=== PATIENT | female | born 1955 | race Caucasian/White ===

== ENCOUNTER 2017-03-31 08:12 | Emergency (ER) | payer OTHER ==
[~2017-03-31] VITALS: Ht 152.4 cm; Wt 52.2 kg
[~2017-03-31 08:12] MED LIST: AMBIEN10 M1 PO; FLOMAX(MONOGRA0.4 MG PO; MACRODANTIN 50M50 MG PO; MINIVELLE1 EAC4 TOP; NORCO 325 MG-51 TAB PO; VICODIN ES 3001 TAB PO; VICODIN ES 7.51 EACH PO; VICODIN10-300 PO; ZOFRAN 4 MG TABL4 MG PO; ZOFRAN ODT4 MG PO; ZOFRAN4 M2 PO; [UNRECOGNIZED DRUG - OTHER] PO
--- NOTE | 2017-03-31 08:37 | ED GI/GU/ABDOMINAL COMPLAINT ---
History of Present Illness General Chief Complaint: Abdominal Pain/Flank Pain Stated Complaint: R FLANK PAIN Source: patient Exam Limitations: no limitations Vital Signs & Intake/Output Vital Signs & Intake/Output Vital Signs Date Time Temp Pulse Resp B/P B/P Pulse O2 O2 Flow FiO2 Mean Ox Delivery Rate 03/31 0817 98.1 84 16 170/79 97 Room Air Allergies Coded Allergies: NO KNOWN ALLERGIES (12/11/14) Reconcile Medications Estradiol (Minivelle) 0.0375 MG/24 HOUR PATCH.TDSW 1 PAT TOP WeSa HRT ( Reported) Nitrofurantoin Macrocrystal (Nitrofurantoin) 50 MG CAPSULE 1 CAP PO DAILY ANTIBIOTIC, INFECTION (Reported) Zolpidem Tartrate (Ambien) 10 MG TABLET 1 TAB PO QPM SLEEP (Reported) Triage Note: PT STATES SHE THINKS SHE HAS A KIDNEY STONE RIGHT FLANK PAIN. PT STATES THIS STARTED LAST EVENING. Triage Nurses Notes Reviewed? yes ? n Is pt currently ? No Onset: Gradual Duration: hour(s):, constant, continues in ED, waxing and waning Timing: recent history Quality/Severity: severe Location: right flank Radiation: no radiation HPI: Patient presents for evaluation of atypical kidney stone attack. Patient has had multiple episodes in the past along with lithotripsy. She tried a Vicodin about 2 hours ago with no improvement. She denies any associated fever, cold symptoms or hematuria. She has felt nauseous but hasn't vomited. Past History Travel History Traveled to [place] past 21 day No Medical History Any Pertinent Medical History? see below for history Neurological: NONE EENT: NONE Cardiovascular: NONE Respiratory: NONE Gastrointestinal: NONE Hepatic: NONE Renal: nephrolithiasis, KIDNEY STONES Musculoskeletal: NONE Psychiatric: NONE Endocrine: NONE Blood Disorders: NONE Cancer(s): NONE INTEGRITY ASSESSOR/Reproductive: NONE Other Medical Hx: recurrent urinary tract infections Surgical History Surgical History: lithotripsy, cystoscopy Psychosocial History What is your primary language [place] Citizen Tobacco Use: Current Daily Use Daily Tobacco Use Amount/Type: => 5 Cigarettes daily ETOH Use: alcoholic Illicit Drug Use: denies illicit drug use Family History Hx Contributory? No Review of Systems Review of Systems Constitutional: Reports: no symptoms. EENTM: Reports: no symptoms. Respiratory: Reports: no symptoms. Cardiovascular: Reports: no symptoms. GI: Reports: no symptoms. Genitourinary: Reports: see HPI. Musculoskeletal: Reports: no symptoms. Skin: Reports: no symptoms. Neurological/Psychological: Reports: no symptoms. Hematologic/Endocrine: Reports: no symptoms. Immunologic/Allergic: Reports: no symptoms. All Other Systems: Reviewed and Negative Physical Exam Physical Exam Gastrointestinal: see below Comments: Gen.: Well-nourished, well-developed, no acute respiratory distress. Acutely distressed secondary to right flank pain. Head: Normocephalic, atraumatic. Eyes: Normal inspection bilaterally Ears: Normal inspection bilaterally Nose: Normal inspection Throat/mouth : Moist mucosa Neck: Supple, full range of motion, no goiter Heart: Regular rate and rhythm, no murmurs rubs or gallops Lungs: Clear to auscultation bilaterally with normal air entry Chest: Nontender Back: Normal range of motion, right CVAT Abdomen: Soft, nontender, nondistended, normal bowel sounds Extremities: Normal range of motion grossly, equal radial pulses, no cyanosis clubbing or edema Neurologic: Cranial nerves grossly intact, speech is clear Skin: warm and dry Psychiatric: Calm, cooperative, no apparent delusions or hallucinations Core Measures ACS in differential dx? No Severe Sepsis Present: No Septic Shock Present: No Progress Differential Diagnosis: kidney stone Plan of Care: Orders Procedure Date/time Status URINALYSIS 03/31 831 Complete COMPREHENSIVE METABOLIC PANEL 03/31 831 Complete CBC WITHOUT DIFFERENTIAL 03/31 831 Complete Laboratory Tests 03/31/17 0832: Anion Gap 12, Estimated GFR > 60, BUN/Creatinine Ratio 23.3, Glucose 111 H, Calcium 9.0, Total Bilirubin 0.5, AST 24, ALT 36, Alkaline Phosphatase 86, Total Protein 6.8, Albumin 4.5, Globulin 2.3, Albumin/Globulin Ratio 2.0, CBC w Diff NO MAN DIFF REQ, RBC 4.72, MCV 96.7, MCH 32.0 H, RDW 14.3, MPV 8.6, Gran % 66.4 , Lymphocytes % 25.3, Monocytes % 6.5, Eosinophils % 1.4, Basophils % 0.4, Absolute Granulocytes 6.5, Absolute Lymphocytes 2.5, Absolute Monocytes 0.6, Absolute Eosinophils 0.1, Absolute Basophils 0, PUBS MCHC 33.1, Urine Color YEL, Urine Clarity HAZY H, Urine pH 6.0, Ur Specific [place] 1.020, Urine Protein TRACE H, Urine Ketones NEG, Urine Nitrite NEG, Urine Bilirubin NEG, Urine Urobilinogen 0.2, Ur Leukocyte Esterase TRACE H, Ur Microscopic SEDIMENT EXAMINED, Urine RBC >75 H, Urine WBC 1-3 H, Ur Epithelial Cells MOD H, Urine Mucus FEW, Urine Hemoglobin LARGE H, Urine Glucose NEG Initial ED EKG: none Comments: Initially I considered treating patient based on symptoms alone, however, the patient states she has had very severe stones and "blockages" in the past so she requested a CAT scan and the otherwise typical evaluation in the emergency department. 03/31/2017 9:41:34 AM Yuni updated, additional pain medication ordered, urologist paged. 03/31/2017 10:35:14 AM D/W DR FRY, who will see patient in the office for subsequent stenting. He feels she is stable for discharge so long as her pain is controlled. The patient is agreeable. Departure Departure Disposition: HOME OR SELF CARE Condition: Stable Clinical Impression Primary Impression: Renal colic on right side Referrals: MELISSA LIM,JOSSY (PCP/Family) SUMMER FRY MD Additional Instructions: PLEASE FOLLOW UP WITH DR FRY, [address], [address], [address], [facility] TODAY FOR APPT AND POSSIBLE STENT PLACEMENT TOMORROW. Departure Forms: Customer Survey General Discharge Information Prescriptions: Current Visit Scripts Hydrocodone/Acetaminophen ([place] 5-325 Tablet) 1-2 TAB PO Q6P PRN PAIN #20 TAB Tamsulosin HCl (Flomax) 1 CAP PO DAILY #7 CAP Ketorolac Tromethamine 1 TAB PO Q6P PRN KIDNEY STONE #16 TAB PATIENT TREATED WITH iv tORADOL IN THE EMERGENCY DEPARTMENT Critical Care Note Critical Care Note Critical Care Time: 30-74 min
[2017-03-31] MEDS ORDERED: NITROFURANTOIN50 M1 PO (08:47)
[2017-03-31 08:50] LABS: ABSOLUTE BASOPHIL COUNT 0 /CUMM (0.0-0.2); ABSOLUTE EOSINOPHIL COUNT 0.1 /CUMM (0.0-0.7); ABSOLUTE GRANULOCYTE CT 6.5 /CUMM (1.4-6.5); ABSOLUTE LYMPH COUNT 2.5 /CUMM (1.2-3.4); ABSOLUTE MONOCYTE COUNT 0.6 /CUMM (0.10-0.60); BASOPHIL % 0.4 % (0.0-2.0); EOSINOPHIL % 1.4 % (0-5); GRANULOCYTE % 66.4 % (42.2-75.2); HEMATOCRIT 45.6 % (37-47); MEAN CORPUSCULAR HGB CONC 33.1 G/DL (33.0-37.0); MEAN CORPUSCULAR VOLUME 96.7 FL (81.0-99.0); MEAN PLATELET VOLUME 8.6 FL (7.4-10.4); PLATELET COUNT 204 /CUMM (130-400); RBC DISTRIBUTION WIDTH 14.3 % (11.5-14.5); RED BLOOD CELL CT 4.72 /CUMM (4.20-5.40); WHITE BLOOD CELL COUNT 9.8 /CUMM (4.8-10.8)
--- NOTE | 2017-03-31 09:27 | CT SCAN REPORT ---
EXAMINATION: CT ABDOMEN AND PELVIS WITHOUT CONTRAST CLINICAL INFORMATION: Right-sided flank pain. COMPARISON: 11/21/2016. TECHNIQUE: Multidetector volumetric imaging was performed from the superior aspect of the liver through the pubic symphysis. Sagittal and coronal reformatted images were obtained on the technologist's workstation. DLP: 221 mGy-cm FINDINGS: LUNG BASES: Small Bochdalek hernia in the right lung base containing only mesenteric fat unchanged. The lungs appear hyperexpanded suggesting COPD changes. LIVER AND SPLEEN: Multiple hepatic cysts are again noted, the largest in the left lobe measuring 12 cm transverse dimension largely unchanged. PANCREAS GALLBLADDER AND BILIARY TREE: Pancreas and biliary tree displaced medially due to the large hepatic cyst in the left lobe as noted above. Otherwise unremarkable. KIDNEYS, URETERS, AND ADRENALS: There is moderate right-sided hydroureteronephrosis with a grouping of approximately 3 small calculi in the mid right ureter at the level of the inferior sacroiliac joint on the right side the largest of these calculi measures 6 x 5 mm in maximal dimension. Otherwise there are multiple small bilateral renal calculi largest mid pole right kidney measuring 4 to 5 mm maximal dimension. Overall stone burden appears largely unchanged. There is a 1.5 cm maximal dimension cyst in the upper pole of the right kidney medially. Unchanged. URINARY BLADDER: Only partially distended without evidence of bladder calculi. GI TRACT: Stomach is displaced medially due to the large hepatic cyst. There are a few scattered descending and sigmoid colon diverticula without evidence of acute diverticulitis. Appendix is not definitively seen however there is no evidence of acute appendicitis. PERITONEAL CAVITY: Unremarkable. RETROPERITONEUM: Mild atherosclerotic aortic calcification without aneurysmal dilatation. PELVIC ORGANS: Lower uterine segment is somewhat prominent for a patient of this age. Pelvic ultrasound imaging should be considered to further evaluate. No definite adnexal lesions are seen. OSSEOUS STRUCTURES: No focal destructive or sclerotic osseous lesions are seen. ANTERIOR ABDOMINAL WALL AND SOFT TISSUES: Intact without evidence of a significant hernia. IMPRESSION: 1. There are multiple bilateral renal calculi with a grouping of small calcifications in the mid right ureter with moderate right-sided hydroureteronephrosis. 2. Multiple hepatic and a single right renal cyst are identified, largest hepatic cyst is over 12 cm in size with mass effect as noted above. 3. Sigmoid colon diverticulosis without evidence of diverticulitis.
[2017-03-31] MEDS ORDERED: KETOROLAC TROME10 M1 PO (10:37)
[2017-03-31] MEDS ORDERED: FLOMAX0.4 M1 PO (10:37)
[2017-03-31] MEDS ORDERED: NORCO 5-325 TA1 EACH PO (10:37)
[2017-03-31 10:42] VITALS: BP 146/85
== END 2017-03-31 10:43 ==
LOC: ERH 08:12
PROVIDERS: Emergency Medicine
DX: N23 Unspecified renal colic (principal)
CPT/HCPCS: 74176; 81001; 96374; 96375; J1885; J2405

== ENCOUNTER → 2017-04-01 | Day surgery (SDC) | payer OTHER ==
[~2017-04-01] VITALS: Ht 152.4 cm; Wt 52.2 kg
[~2017-04-01] MED LIST changes: +FLOMAX0.4 M1 PO; +KETOROLAC TROME10 M1 PO; +NITROFURANTOIN50 M1 PO; +NORCO 5-325 TA1 EACH PO
--- NOTE | 2017-04-01 16:34 | Operative Report ---
Operative/Inv Procedure Report Surgery Date: 04/01/17 Name of Procedure: CYSTSOCOPY: RIGHT RETROGRADE PYELOGRAM , REGHT STENT INSERTION. Pre-Operative Diagnosis: RIGHT URETER STONE WIHT SEVERE HYDRONEPHROSIS Post-Operative Diagnosis: BILAT. RENAL STOE Estimated Blood Loss: less than 50ml Surgeon/Pipe Fitter Apprentice: SUMMER FRY MD Anesthesia: laryngeal mask airway Complications: none Condition: IMPROVED Operative/Procedure Note Note: Patient was taken to the operating room placed on the OR table in supine position. Timeout was performed, with the patient awake, in order to confirm the patient's correct identity, procedure, laterality, anesthesia, and other pertinent perioperative information.. After adequate anesthesia and antibiotics , the patient was then placed in lithotomy stirrups, draped and prepped in the usual surgical fashion. A 22 Angolan cystoscope sheath with 30 angle lens was inserted without difficulty. Upon entering the bladder, the bladder was noted to be free of tumor, free of stone. Both orifices were in their orthotopic position, with clear reflux from the left ureter, but no reflux in the right. The right ureteral orifice was intubated with an 8 Angolan cone-tipped catheter. Retrograde pyelogram was performed revealing a amorphos\us filling defect in the renal pelvis. On fluoroscopy, there was proximal hydronephrosis. The cone- tipped catheter was removed, and then the right orifice was intubated with a 0.035 safety gluidewire. The Glidewire was advanced into the right ureter, and renal pelvis, with fluoroscopic visualization. The flexible ureteroscope was railroaded over the Glidewire. With fluoroscopic confirmation of the flexible ureteroscope in the right renal pelvis, the Glidewire was removed. Large amount of pus consistent with bezoar, was noted in the renal pelvis. The entire bezoar was aspirated out revealing no tumor, no stone. A 0.035 Glidewire was then reinserted into the renal pelvis via the ureteroscope. The ureteroscope was removed leaving the Glidewire in place. The Glidewire was then backloaded onto a 22 Angolan cystoscope sheath with a 30 angle lens. The cystoscope was then reinserted into the bladder where the right orifice was visualized with the Glidewire and place. Over this Glidewire a 6x20 Bard onlay stent was inserted with the proximal coil visualized in the renal pelvis with fluoroscopy and the distal coil in the bladder cystoscopically the Glidewire was removed. Fluoroscopy was then performed in order to reveal the stent to be in proper place. The bladder was then drained via the cystoscope which was then removed. The patient tolerated the procedure well, all sponge needle and a cement count were correct at the end of the case, and the patient was awakened and taken to the recovery room in satisfactory condition. Discharge Disposition: PACU CC: SUMMER FRY MD
--- NOTE | 2017-04-02 14:11 | RADIOLOGY REPORT ---
EXAMINATION: XR KIDNEYS, URETER, BLADDER CLINICAL INDICATION: Right cystoureterography and stent placement. COMPARISON: CT of abdomen pelvis, 03/31/2017 TECHNIQUE: Fluoroscopic imaging of the right abdomen was utilized and 2 spot fluoroscopy images are submitted into the electronic picture archive. Fluoroscopy time: 17.5 seconds. Dose: 157.53 mrad. FINDINGS: Please refer to the operative report from Dr. Cohen. There are right renal calculi and a right ureteral stent was deployed; the stent is a not completely included in the [id number] on the saved fluoroscopic images. IMPRESSION: Urolithiasis. Right ureteral stent was placed. Please refer to the operative report.
== END ==
LOC: STS 07:00
DX: N13.39 Other hydronephrosis (principal); N28.89 Other specified disorders of kidney and ureter; Z87.442 Personal history of urinary calculi; F17.200 Nicotine dependence, unspecified, uncomplicated
CPT/HCPCS: 74000; 93005; 93010; C2617; J0131; J2250

== ENCOUNTER → 2017-04-08 | Day surgery (SDC) | payer OTHER ==
[~2017-04-08] VITALS: Ht 152.4 cm; Wt 52.2 kg
--- NOTE | 2017-04-08 14:29 | Operative Report ---
Operative/Inv Procedure Report Surgery Date: 04/08/17 Name of Procedure: right ureter ESWL: cystscopy with right stent removal. Pre-Operative Diagnosis: bilat. renal stones: right ureter stone with stent. Post-Operative Diagnosis: same Estimated Blood Loss: scant Surgeon/Director Trade: SUMMER FRY MD Anesthesia: moderate sedation Specimens: none Complications: none Operative/Procedure Note Note: The patient was taken to the operating room and placed on the ESWL table in supine position. Time out was performed, with the patient awake, to confirm identity, procedure, laterality, and other pertinent edilma-operative information. After adequate anesthesia, the patient was positioned so that the right flank was placed over the ESWL table cut-out, and overlying the dome of the shockwave generator. C-arm fluroscopy, as well as renal US was used to locate the stone, and evaluate the right kidney. The stone was faintly visible on fluroloscopy at the right mid-ureter. Renal US confirmed mild hydronephrosis with no additional stone seen in the right kidney. The right ureter stone was approximate 9 mm in size and faintly visible with fluoroscopy. Using the C-Arm fluoroscopy in an A- P, and Oblique view, the position of the ureter stone was optimized at the center of the crosshairs. At this point, E.S.W.L. was initiated at low power levels x 200 shocks. After noting the patient's tolerance to the shockwaves, the shockwave power level was quickly maximized. At the end of the procedure, the composition of the stone had changed significantly indicating the pulverization of the ureter stone. A total of 3000 shockwaves were delivered to the stone in order to achieve adequate lithotrypsy. Once the ESWL concluded, the pt. was repositioned in frog-legged position, draped and prepped in the usual surgical fashion. A 22 D[place] cystoscope sheath with a 30 angle lens was then inserted into the bladder. The bladder was thoroughly and systematically surveyed revealing no tumor no stone. Both ureteral orifices were in their orthotopic position. The right orifice was intubated with a stent, which was grasped with a grasping forcep. The entire stent along with the cystoscope was then removed without difficulty. The patient tolerated the procedures well, was awakened, and taken to recovery in satisfactory condition via stretcher. The pt will be dischared to home with pain meds, diet orders, and intructions to catch fragments with straining the urine. The patient is to have follow-up renal ultrasound and KUB within 1-2 weeks and f/u in the office after discharge. Findings: 9mm right mid-ureter stone shattered at 3000-gaited Discharge Disposition: Same Day Admissions CC: LISANDRA LIM,SUMMER
== END ==
LOC: STS 07:00
DX: N13.2 Hydronephrosis with renal and ureteral calculous obstruction (principal)
CPT/HCPCS: J0690

== ENCOUNTER 2017-04-09 11:26 | Emergency (ER) | payer OTHER ==
[~2017-04-09] VITALS: Ht 152.4 cm; Wt 49.9 kg
--- NOTE | 2017-04-09 11:57 | ED GI/GU/ABDOMINAL COMPLAINT ---
History of Present Illness General Chief Complaint: Abdominal Pain/Flank Pain Stated Complaint: R FLANK PAIN Source: patient, old records Exam Limitations: no limitations Vital Signs & Intake/Output Vital Signs & Intake/Output Vital Signs Date Time Temp Pulse Resp B/P B/P Pulse O2 O2 Flow FiO2 Mean Ox Delivery Rate 04/09 1330 98.2 76 18 168/80 94 Room Air 04/09 1238 90 182/80 04/09 1134 98.9 82 20 182/90 95 Room Air Allergies Coded Allergies: No Known Allergies (04/01/17) Reconcile Medications Estradiol (Minivelle) 0.0375 MG/24 HOUR PATCH.TDSW 1 PAT TOP WeSa HRT ( Reported) Hydrocodone/Acetaminophen (Garvin 5-325 Tablet) 5 MG-325 MG TABLET 1-2 TAB PO Q6P PRN PAIN Nitrofurantoin Macrocrystal (Nitrofurantoin) 50 MG CAPSULE 1 CAP PO DAILY ANTIBIOTIC, INFECTION (Reported) Zolpidem Tartrate (Ambien) 10 MG TABLET 1 TAB PO QPM SLEEP (Reported) Triage Note: C/O R FLANK PAIN 2 HOURS, S/P LITHOTRIPSY (DR. COHEN). ALSO C/O NAUSEA. Triage Nurses Notes Reviewed? yes ? n Is pt currently ? No Onset: Abrupt Duration: hour(s): (2) Timing: recent history Quality/Severity: sharpness, severe Severity Numbers: 9 Location: right flank Radiation: back Activities at Onset: none Prior Abdominal Problems: similar symptoms Past Sexual History: Unobtainable at this time No Modifying Factors: none HPI: Patient is a 61-year-old female with extensive history of kidney stones, sees Dr. Cohen, presenting to the emergency department with chief complaint of sudden onset right flank pain that began approximately 2 hours prior to arrival. Patient denying any hematuria but reports that she thinks she may have passed one stone earlier today. She was recently seen and evaluated in the emergency department for similar symptoms and diagnosed with a large kidney stone. She had lithotripsy done yesterday and her ureteral stent was removed yesterday. She was fine last night. Ate dinner without difficulty. Patient denies any fevers or chills. Positive decreased by mouth intake today. Nausea but no vomiting. Denies chest pain palpitations or shortness of breath. (HOOD LICEA) Past History Travel History Traveled to [place] past 21 day No Medical History Any Pertinent Medical History? see below for history Neurological: NONE EENT: NONE Cardiovascular: NONE Respiratory: NONE Gastrointestinal: NONE Hepatic: NONE Renal: nephrolithiasis, KIDNEY STONES Musculoskeletal: NONE Psychiatric: NONE Endocrine: NONE Blood Disorders: NONE Cancer(s): NONE DIRECTOR FIXED INCOME/Reproductive: NONE Other Medical Hx: recurrent urinary tract infections Surgical History Surgical History: lithotripsy, cystoscopy Psychosocial History What is your primary language Burkinan Tobacco Use: Current Daily Use Daily Tobacco Use Amount/Type: => 5 Cigarettes daily ETOH Use: denies use Family History Hx Contributory? No (HOOD LICEA) Review of Systems Review of Systems Constitutional: Reports: no symptoms. Comments Review of systems: See HPI, All other systems negative. Constitutional, no chills fever or weight loss HEENT: No visual changes no sore throat no congestion Cardiovascular: No chest pain ,palpitation Skin, no jaundice no rashes Respiratory: No dyspnea cough sputum or hemoptysis GI: No nausea no vomiting : No dysuria No hematuria Muscle skeletal: no back pain, no neck pain, Neurologic: No numbness no confusion, no headaches Psych: No stress anxiety or depression,. Heme/endocrine: No bruising no bleeding no polyuria or polydipsia Immunology: No splenectomy or history of AIDS (HOOD LICEA) Physical Exam Physical Exam General Appearance: well developed/nourished, alert, awake, mild distress Gastrointestinal: normal bowel sounds, soft, non-tender Comments: Well-developed well-nourished person in mild distress HEENT:. Pupils equally round and reactive to light and accommodation. Nose is atraumatic. Moist oromucosa. Neck: Normal inspection Back: Right CVA tenderness on exam. Cardiovascular: Regular rate and rhythms no murmurs rubs or gallops, normal JVP Respiratory: Chest nontender. No respiratory distress.breath sounds clear to auscultation bilaterally Abdomen: Soft, nontender nondistended, no appreciable organomegaly. Normal bowel sounds. No ascites, no rebound or guarding. Extremity: No edema Neuro: Alert oriented x3 Skin: No appreciable rash on exposed skin, skin is warm and dry. Psych: Mood and affect is normal, memory and judgment is normal. Core Measures ACS in differential dx? No Severe Sepsis Present: No Septic Shock Present: No ([place]) Progress Differential Diagnosis: UTI/pyelo, kidney stone, ureterolithiasis, nephrolithiasis Plan of Care: Orders Procedure Date/time Status URINALYSIS 04/09 1157 Complete COMPREHENSIVE METABOLIC PANEL 04/09 1157 Complete CBC WITHOUT DIFFERENTIAL 04/09 1157 Complete Laboratory Tests 04/09/17 1233: Anion Gap 10, Estimated GFR > 60, BUN/Creatinine Ratio 21.4, Glucose 135 H, Calcium 9.3, Total Bilirubin 0.8, AST 24, ALT 41, Alkaline Phosphatase 67, Total Protein 6.4, Albumin 4.2, Globulin 2.2, Albumin/Globulin Ratio 1.9, CBC w Diff NO MAN DIFF REQ, RBC 4.48, MCV 95.7, MCH 32.1 H, RDW 13.9, MPV 8.5, Gran % 86.5 H, Lymphocytes % 7.5 L, Monocytes % 5.6, Eosinophils % 0.2, Basophils % 0.2, Absolute Granulocytes 9.7 H, Absolute Lymphocytes 0.8 L, Absolute Monocytes 0.6, Absolute Eosinophils 0, Absolute Basophils 0, PUBS MCHC 33.6 04/09/17 1200: Urinalysis LIGHT H, Urine Color DMITRIY, Urine Clarity HAZY H, Urine pH 5.0, Ur Specific [place] >= 1.030, Urine Protein 30 H, Urine Ketones TRACE H, Urine Nitrite NEG, Urine Bilirubin NEG, Urine Urobilinogen 0.2, Ur Leukocyte Esterase NEG, Ur Microscopic SEDIMENT EXAMINED, Urine RBC >75 H, Urine WBC 1-3 H, Ur Epithelial Cells MANY H, Urine Bacteria FEW H, Hyaline Casts RARE H, Urine Mucus MOD H, Urine Hemoglobin LARGE H, Urine Glucose NEG Diagnostic Imaging: Viewed by Me: Radiology Read, Ultrasound. Discussed w/RAD: Radiology Read, Ultrasound. Radiology Impression: PATIENT: ASAEL QUIROGA PRESENT AGE: 61 PATIENT ACCOUNT NO: [id number] : 54 LOCATION: [facility] ORDERING PHYSICIAN: HOOD PALACIOS SERVICE DATE: 04/09/17-1157 EXAM TYPE: US - US-RENAL/KIDNEY EXAMINATION: US RETROPERITONEAL COMPLETE (RENAL) CLINICAL INFORMATION: Right flank pain. Recent lithotripsy.. COMPARISON: Radiograph from today. CT from 03/31/2017. TECHNIQUE: Real-time imaging of the kidneys and bladder. FINDINGS: RIGHT KIDNEY: 11.2 x 5.9 x 4.5 cm (SAG x AP x TRV ). The kidney is normal in size, contour, and echogenicity. Renal cortical thickness is normal. There is mild hydronephrosis. Multiple calculi are present. Of note, there is a 0.7 cm midpole calculus. There are lower pole 0.7 cm and 0.6 cm calculi. Additional 0.8 cm lower pole calculus. Mild perinephric fluid noted. No parenchymal lesions. LEFT KIDNEY: 10.6 x 5.2 x 4.4 cm (SAG x AP x TRV). The kidney is normal in size, contour, and echogenicity. Renal cortical thickness is normal. No hydronephrosis or focal parenchymal lesions. Multiple calculi are present. 0.7 cm and 0.6 cm calculi are noted at the lower pole. BLADDER: Partially distended. Bilateral ureteral jets are not demonstrated. Post void bladder volume of 70 mL. IMPRESSION: Mild right hydronephrosis. Multiple bilateral renal calculi. Mild perinephric fluid on the right could be associated with stranding and an obstruction.. DICTATED BY: NOE RALPH MD DATE/TIME DICTATED:04/09/171237 [employer] LAB[employer]ER:ESTEFANIA DATE/TIME TRANSCRIBED:1237 CONFIDENTIAL, DO NOT COPY WITHOUT APPROPRIATE AUTHORIZATION. < Electronically signed in Other Vendor System> SIGNED BY: NOE RALPH MD 04/09/17 1243, PATIENT: ASAEL QUIROGA PRESENT AGE: 61 PATIENT ACCOUNT NO: [id number] : 54 LOCATION: [facility] ORDERING PHYSICIAN: HOOD PALACIOS SERVICE DATE: 04/09/17 EXAM TYPE: RAD - XRY-KIDNEYS, URETERS, BLADDER EXAMINATION: XR KIDNEYS, URETER, BLADDER CLINICAL INDICATION: Right flank pain. COMPARISON: 03/31/2017 CT. Ultrasound from today. TECHNIQUE: AP view of the abdomen. FINDINGS: There are multiple bilateral renal calculi identified. On the right, there is a 0.6 cm upper pole calculus. There are 3 mid pole calculi measuring up to 0.4 cm. There are at least 3 lower pole calculi measuring up to 0.5 cm. On the left, there are multiple tiny lower pole calculi with the 2 largest calculi measuring 0.6 cm and 0.5 cm. Calcifications are seen in the pelvis. While the calcifications in the left hemipelvis are unchanged and likely represent phleboliths, there is also a calcification in the right hemipelvis which is new from previous and may represent progression of the calculi which were seen in the ureter. This measures 0.3 cm. The bowel gas pattern is unremarkable. No acute osseous abnormality.. IMPRESSION: Multiple bilateral renal calculi. 0.3 cm calculus in the right hemipelvis which could be positioned at the distal ureter. DICTATED BY: NOE RALPH MD DATE/TIME DICTATED:04/09/171234 [employer] LAB[employer]ER:ESTEFANIA DATE/TIME TRANSCRIBED:1234 CONFIDENTIAL, DO NOT COPY WITHOUT APPROPRIATE AUTHORIZATION. < Electronically signed in Other Vendor System> SIGNED BY: NOE RALPH MD 04/09/17 1241 Initial ED EKG: none Comments: Patient feeling much better after IV hydration, Toradol, morphine and Zofran. Discussed with Dr. Cohen discharge plan. Patient was able to pass a kidney stone here in the emergency department and feels much better. She'll increase fluids. She will continue previously prescribed medications. She'll follow with Dr. Cohen in office. Patient nontoxic. No signs of urine infection on exam. We will send off culture. Blood pressure elevated here today. Likely related to pain on arrival. Patient will follow-up with PCP regarding blood pressure. No headaches, no visual changes. (HOOD LICEA) Departure Departure Time of Disposition: 1326 Disposition: HOME OR SELF CARE Condition: Stable Clinical Impression Primary Impression: Ureterolithiasis Secondary Impressions: Hypertension Qualifiers: Hypertension type: essential hypertension Qualified Code: I10 - Essential (primary) hypertension Referrals: MELISSA LIM,JOSSY (PCP/Family) SUMMER COHEN MD Additional Instructions: Follow-up with Dr. Cohen as scheduled, increase fluid intake. Return for worsening symptoms or concerns. Follow-up with your primary care physician regarding blood pressure as well. Departure Forms: Customer Survey D/C INS-APPENDICITIS EXCLUSION General Discharge Information (HOOD LICEA) PA/CATALYST OPERATOR GASOLINE Co-Sign Statement Statement: ED Attending supervision documentation- x I saw and evaluated the patient. I have also reviewed all the pertinent lab results and diagnostic results. I agree with the findings and the plan of care as documented in the PA's/CATALYST OPERATOR GASOLINE's documentation. [] I have reviewed the ED Record and agree with the PA's/CATALYST OPERATOR GASOLINE's documentation. [] Additions or exceptions (if any) to the PAs/CATALYST OPERATOR GASOLINE's note and plan are summarized below: [] (MARCELINO LIM,ANIVAL)
--- NOTE | 2017-04-09 12:41 | RADIOLOGY REPORT ---
EXAMINATION: XR KIDNEYS, URETER, BLADDER CLINICAL INDICATION: Right flank pain. COMPARISON: 03/31/2017 CT. Ultrasound from today. TECHNIQUE: AP view of the abdomen. FINDINGS: There are multiple bilateral renal calculi identified. On the right, there is a 0.6 cm upper pole calculus. There are 3 mid pole calculi measuring up to 0.4 cm. There are at least 3 lower pole calculi measuring up to 0.5 cm. On the left, there are multiple tiny lower pole calculi with the 2 largest calculi measuring 0.6 cm and 0.5 cm. Calcifications are seen in the pelvis. While the calcifications in the left hemipelvis are unchanged and likely represent phleboliths, there is also a calcification in the right hemipelvis which is new from previous and may represent progression of the calculi which were seen in the ureter. This measures 0.3 cm. The bowel gas pattern is unremarkable. No acute osseous abnormality.. IMPRESSION: Multiple bilateral renal calculi. 0.3 cm calculus in the right hemipelvis which could be positioned at the distal ureter.
--- NOTE | 2017-04-09 12:43 | ULTRASOUND REPORT ---
EXAMINATION: US RETROPERITONEAL COMPLETE (RENAL) CLINICAL INFORMATION: Right flank pain. Recent lithotripsy.. COMPARISON: Radiograph from today. CT from 03/31/2017. TECHNIQUE: Real-time imaging of the kidneys and bladder. FINDINGS: RIGHT KIDNEY: 11.2 x 5.9 x 4.5 cm (SAG x AP x TRV). The kidney is normal in size, contour, and echogenicity. Renal cortical thickness is normal. There is mild hydronephrosis. Multiple calculi are present. Of note, there is a 0.7 cm midpole calculus. There are lower pole 0.7 cm and 0.6 cm calculi. Additional 0.8 cm lower pole calculus. Mild perinephric fluid noted. No parenchymal lesions. LEFT KIDNEY: 10.6 x 5.2 x 4.4 cm (SAG x AP x TRV). The kidney is normal in size, contour, and echogenicity. Renal cortical thickness is normal. No hydronephrosis or focal parenchymal lesions. Multiple calculi are present. 0.7 cm and 0.6 cm calculi are noted at the lower pole. BLADDER: Partially distended. Bilateral ureteral jets are not demonstrated. Post void bladder volume of 70 mL. IMPRESSION: Mild right hydronephrosis. Multiple bilateral renal calculi. Mild perinephric fluid on the right could be associated with stranding and an obstruction..
[2017-04-09 12:58] LABS: ABSOLUTE BASOPHIL COUNT 0 /CUMM (0.0-0.2); ABSOLUTE EOSINOPHIL COUNT 0 /CUMM (0.0-0.7); ABSOLUTE GRANULOCYTE CT 9.7 /CUMM (1.4-6.5); ABSOLUTE LYMPH COUNT 0.8 /CUMM (1.2-3.4); ABSOLUTE MONOCYTE COUNT 0.6 /CUMM (0.10-0.60); BASOPHIL % 0.2 % (0.0-2.0); EOSINOPHIL % 0.2 % (0-5); HEMATOCRIT 42.9 % (37-47); MEAN CORPUSCULAR HGB 32.1 PG (27.0-31.0); MEAN CORPUSCULAR HGB CONC 33.6 G/DL (33.0-37.0); MEAN CORPUSCULAR VOLUME 95.7 FL (81.0-99.0); MEAN PLATELET VOLUME 8.5 FL (7.4-10.4); PLATELET COUNT 195 /CUMM (130-400); RBC DISTRIBUTION WIDTH 13.9 % (11.5-14.5); RED BLOOD CELL CT 4.48 /CUMM (4.20-5.40); WHITE BLOOD CELL COUNT 11.3 /CUMM (4.8-10.8)
[2017-04-09 13:21] LABS: GRANULOCYTE % 86.5 % (42.2-75.2)
[2017-04-09 13:30] VITALS: BP 168/80
== END 2017-04-09 13:37 ==
LOC: ERH 11:26
PROVIDERS: Physician Assistant
DX: N20.1 Calculus of ureter (principal); I10 Essential (primary) hypertension
CPT/HCPCS: 74000; 76775; 81001; 96361; 96374; 96375; J1885

== ENCOUNTER → 2017-12-04 | Day surgery (SDC) | payer OTHER ==
[~2017-12-04] MED LIST changes: +CIPRO500 M1 PO
--- NOTE | 2017-12-04 11:17 | Operative Report ---
Operative/Inv Procedure Report Surgery Date: 12/04/17 Name of Procedure: Cystoscopy. Right ureteroscopy with laser lithotripsy of ureter stones. Fluoroscopy. Pre-Operative Diagnosis: Severe right hydronephrosis due to multiple right ureter stones. Post-Operative Diagnosis: Same Estimated Blood Loss: less than 50ml Surgeon/Rn Integrated: Robe Cohen MD Anesthesia: laryngeal mask airway Drains: 16 Albanian Jordan to be removed in recovery room Specimens: Right ureter stone fragments Complications: None Condition: Improved Operative/Procedure Note Note: The patient was taken to the operating room and placed on the OR table in supine position. With the patient awake, timeout was performed in order to confirm; correct patient, correct procedure, as well as correct laterality, and other pertinent edilma-operative information. After adequate anesthesia and antibiotics , the patient was then placed lithotomy stirrups, draped and prepped in the usual surgical fashion. A 22 Albanian cystoscope sheath with 30 angle lens was inserted into the bladder without difficulty. Upon entering the bladder, the bladder was noted to be free of tumor, and free of stone. Both orifices were in their orthotopic position. The right ureter orifice was intubated with an 8fr cone-tip catheter, and a retrograde pyelogram with fluoroscopy was performed. A 10 mm right UVJ filling defect c/w stone was visualized, as well as 3 additional large stones along the length of the right ureter. Right proximal hydronephrosis was present. The cone-tipped catheter was removed, followed by insertion of a 0.035 Glidewire, which was advanced into the right renal pelvis without difficulty. Placement was confirmed on fluoroscopy. Leaving the Glidewire in place, the cystoscope was removed. Using a rigid Micro-6 ureteroscope, the bladder was then re-entered under direct visualization. The rigth ureter orifice was clearly visible, and open. The ureteroscope was ealily advanced/inserted into the open right ureter under direct visualization. The ureteroscope was advanced easily and gently into the distal ureter, and the large ureteral stone was visualized. Under direct visualization, the 365 g holmium-YAG laser fiber was inserted through the ureteroscope. With the laser fiber in direct contact with the stone, laser lithotripsy was performed in order to pulverize all the stones along the right ureter, into multiple tiny fragments. The fragments were all flushed out, and sent to pathology for analysis. At this point, the ureteroscope was then gently advanced into the right renal pelvis without difficulty. No other stones, nor any tumor was visualized in the renal pelvis. The entire length of the ureter was aslo visualize carefully on the way out with the ureteroscope, and the same findings of no stones, nor tumor was seen. The bladder was then drained via a 16 Albanian Jordan catheter, it will be removed in the recovery room. All sponge needle and instrument count were correct at the end of the case. The patient tolerated the procedure well, and was then taken to the recovery room in satisfactory condition. The patient is to follow up in 1-2 weeks. Discharge Disposition: PACU CC: Robe Cohen MD
--- NOTE | 2017-12-05 12:37 | RADIOLOGY REPORT ---
EXAMINATION: XR ABDOMEN CLINICAL INDICATION: Right ureteroscopy and lithotripsy in the operating room. COMPARISON: CT abdomen and pelvis 12/02/2017. TECHNIQUE: Intraoperative fluoroscopic guidance was provided to Dr. Cohen in the operating room. FLUOROSCOPY TIME: 1.5 minutes NUMBER OF IMAGES: 12 FINDINGS: Right renal calculi. A wire and catheter are seen within the right urinary collecting system. The final image demonstrates the calculus to be removed. IMPRESSION: Right ureteroscopy and lithotripsy with removal of right renal calculi. Refer to the operative notes for details.
== END ==
LOC: STS 04:41
DX: N13.2 Hydronephrosis with renal and ureteral calculous obstruction (principal); F17.200 Nicotine dependence, unspecified, uncomplicated
CPT/HCPCS: 74018; J0131; J0690; J2250